=== PATIENT | male | born 1950 | race Two or more races ===

== ENCOUNTER 2025-06-29 21:12 | Inpatient (IN) | payer MEDICARE ==
[~2025-06-29] VITALS: Ht 165.1 cm; Wt 94.5 kg
[2025-06-29] MEDS ORDERED: NITROGLYCERIN OINT 1 GM PACKET TP ONE (21:32)
[2025-06-29] MEDS ORDERED: ASPIRIN 81 MG TAB.CHEW ONE (21:32)
[2025-06-29] MEDS ORDERED: NITROGLYCERIN 0.4 MG/TAB BOTTLE SL ONE (21:32)
[2025-06-29 21:38] LABS: PLATELET COUNT (AUTO) 182 K/uL (152-348); RED BLOOD CELL COUNT(AUTO) 5.31 MIL/uL (4.06-5.63); RED CELL DISTRIBUTION WIDTH 13.4 % (12.1-16.2); WHITE BLOOD COUNT (AUTO) 7.1 K/uL (3.6-10.2)
[2025-06-29] MEDS: ASPIRIN 81 MG TAB.CHEW PO ONE (21:39)
[2025-06-29] MEDS: NITROGLYCERIN OINT 1 GM PACKET TP ONE (21:39)
[2025-06-29] MEDS: NITROGLYCERIN 0.4 MG/TAB BOTTLE SL ONE (21:40)
[2025-06-29] MEDS ORDERED: EZET10TA15 PO (21:44)
[2025-06-29] MEDS ORDERED: DILT-32 PO (21:44)
[2025-06-29 21:47] LABS: CREATININE 1.0 mg/dL (0.6-1.3); SODIUM SERUM 141 mmol/L (136-145); UREA NITROGEN, BLOOD 23 mg/dL (7-18)
[2025-06-29 21:53] LABS: ASPARTATE AMINOTRANSFERASE 27 U/L (15-37); TOTAL PROTEIN, SERUM 6.8 g/dL (6.4-8.2)
[2025-06-29] MEDS ORDERED: VERAPAMIL 5 MG/2 ML VIAL IV ONE (22:50)
[2025-06-29] MEDS ORDERED: REMEDY ESSENTIAL ZINC PASTE 113 GM TP PRN (23:00)
[2025-06-29] MEDS ORDERED: MAGNESIUM HYDROXIDE 30 ML LIQUID UDC PO PRN (23:00)
[2025-06-29] MEDS ORDERED: ONDANSETRON 4 MG/2 ML VIAL IV PRN (23:00)
[2025-06-29] MEDS ORDERED: ACETAMINOPHEN 325 MG TABLET PO PRN (23:00)
[2025-06-29] MEDS: VERAPAMIL 5 MG/2 ML VIAL IV ONE ×2 (23:08→23:23)
[2025-06-30 00:29] VITALS: BP 100/63; TEMP 98.8; O2SAT 97
[2025-06-30] MEDS: ENOXAPARIN SODIUM 40 MG/0.4 ML DISP.SYRIN SQ SCH (01:06)
[2025-06-30 04:35] VITALS: BP 114/77; TEMP 98.3; O2SAT 94
[2025-06-30 05:45] VITALS: O2SAT 94
[2025-06-30 06:40] LABS: PLATELET COUNT (AUTO) 182 K/uL (152-348); RED BLOOD CELL COUNT(AUTO) 5.14 MIL/uL (4.06-5.63); RED CELL DISTRIBUTION WIDTH 13.6 % (12.1-16.2); WHITE BLOOD COUNT (AUTO) 7.1 K/uL (3.6-10.2)
[2025-06-30 06:55] LABS: CREATININE 1.0 mg/dL (0.6-1.3); SODIUM SERUM 141 mmol/L (136-145); UREA NITROGEN, BLOOD 21 mg/dL (7-18)
[2025-06-30 07:16] VITALS: BP 120/71; TEMP 97.8; O2SAT 94
[2025-06-30] MEDS: DILTIAZEM HCL CD 120 MG CAP.SR.24H PO SCH (08:18)
[2025-06-30] MEDS: EZETIMIBE 10 MG TABLET PO SCH (08:19)
[2025-06-30 10:22] VITALS: BP 134/42; TEMP 97.7; O2SAT 97
== END 2025-06-30 13:15 | disposition home or self-care (01) | DRG 310 ==
LOC: ER 21:32 → TELE3 22:55
PROVIDERS: ADMIT Nurse Practitioner Acute Care; ATTEND Internal Medicine
DX: I47.20 Ventricular tachycardia, unspecified (principal); E78.5 Hyperlipidemia, unspecified; I47.10 Supraventricular tachycardia, unspecified; I10 Essential (primary) hypertension; Z79.899 Other long term (current) drug therapy
CPT/HCPCS: 36415; 71045; 83735; 84100; 84443; 84481; 84484; 85025; 85730; 93307; A4606; A4663; G0378; J1650; J3490